=== PATIENT | male | born 1955 | race Caucasian/White ===

== ENCOUNTER 2017-10-14 05:27 | Observation (INO) | payer BC ==
[2017-10-14] MEDS ORDERED: BABY ASPIRIN 81 MG CHEW PO ONE (05:57)
[2017-10-14] MEDS ORDERED: Nitrostat 0.4 MG (ED) SL ONE ×3 (05:57→06:28)
[2017-10-14] MEDS ORDERED: MORPHINE SULFATE 4 MG INJ IV ONE (05:57)
[2017-10-14] MEDS ORDERED: Zofran 4 MG/2 ML VIAL IV ONE (05:57)
[2017-10-14] MEDS ORDERED: Pepcid 20 MG VIAL IV ONE ×2 (05:57→06:10)
--- NOTE | 2017-10-14 05:58 | ERPHSYRPT ---
- History of Present Illness Time Seen by Provider: 10/14/17 05:48 Historian: patient Exam Limitations: no limitations Physician History: The patient is a 62-year-old male complaining of being awakened from sleep at 2 AM by central chest pain. The pain is described as a "solid" pain. He is a little bit short of breath. The pain is a 7 out of 10. He is not nauseated but he states that he might be soon. He denies sweating. It hurts a little bit to take a breath. He did not take anything for the pain except for Maalox which did not help. About 3 weeks ago he was awakened with severe reflux. His past medical history is significant for hypertension and reflux. He has never had a stress test. His family history is significant for a brother who had a CABG in his 50s. Timing/Duration: today, hour(s) (4) Activities at Onset: sleep Quality: other ("solid") Location: central Chest Pain Radiation: back Severity of Pain-Max: moderate Severity of Pain-Current: moderate Modifying Factors: Improves With: breathing Associated Symptoms: shortness of breath, hurts to breathe Prior Chest Pain/Cardiac Workup: no prior chest pain, no prior cardiac workup Nitro Today/Relief: no nitro taken today Aspirin Treatment Today: 81 mg x 4, provided by ED Allergies/Adverse Reactions: Penicillins Allergy (Mild, Verified 10/14/17 05:57) Rash Home Medications: Multivitamin [Multivitamins] 1 each PO HS 07/19/13 [History] Nebivolol HCl [Bystolic] 10 mg PO 07/19/13 [History] Etlan-3 Fatty Acids/Fish Oil [Fish Oil 1,000 mg Capsule] 1,000 mg PO 07/30 [History] Famotidine 20 mg [Pepcid 20 MG] 20 mg PO 10/14/17 [History] Loratadine 10 mg [Claritin 10 mg] 10 mg PO 10/14/17 [History] Hx Influenza Vaccination/Date Given: Yes Hx Pneumococcal Vaccination/Date Given: No - Review of Systems Constitutional: No Fever, No Chills Eyes: No Symptoms Ears, Nose, & Throat: No Symptoms Respiratory: No Cough, No Dyspnea Cardiac: Chest Pain Abdominal/Gastrointestinal: No Abdominal Pain, No Nausea, No Vomiting, No Diarrhea Genitourinary Symptoms: No Dysuria Musculoskeletal: No Back Pain, No Neck Pain Skin: No Rash Neurological: No Dizziness, No Focal Weakness, No Sensory Changes Psychological: No Symptoms Endocrine: No Symptoms Hematologic/Lymphatic: No Symptoms Immunological/Allergic: No Symptoms All Other Systems: Reviewed and Negative - Past Medical History Pertinent Past Medical History: Yes Neurological History: No Pertinent History ENT History: No Pertinent History Cardiac History: High Cholesterol, Hypertension Respiratory History: No Pertinent History Endocrine Medical History: No Pertinent History Musculoskeletal History: No Pertinent History GI Medical History: No Pertinent History History: No Pertinent History Psycho-Social History: No Pertinent History Male Reproductive Disorders: No Pertinent History - Past Surgical History Past Surgical History: Yes Neuro Surgical History: No Pertinent History Cardiac: No Pertinent History Respiratory: No Pertinent History Gastrointestinal: No Pertinent History Genitourinary: No Pertinent History Musculoskeletal: Orthopedic Surgery Other Surgical History: left middle finger amputation - Social History Smoking Status: Never smoker Exposure to second hand smoke: No Drug Use: none - Nursing Vital Signs Nursing Vital Signs: Initial Vital Signs Temperature 97.5 F 10/14/17 05:39 Pulse Rate 62 10/14/17 05:39 Respiratory Rate 22 10/14/17 05:39 Blood Pressure 170/89 10/14/17 05:39 O2 Sat by Pulse Oximetry 99 10/14/17 05:39 Pain Scale Pain Intensity 3 - Physical Exam General Appearance: moderate distress Eye Exam: PERRL/EOMI, eyes nml inspection Ears, Nose, Throat Exam: normal ENT inspection, moist mucous membranes Neck Exam: normal inspection, non-tender, supple, full range of motion Respiratory Exam: normal breath sounds, chest tenderness (slight tenderness), lungs clear, No respiratory distress Cardiovascular Exam: regular rate/rhythm, normal heart sounds Gastrointestinal/Abdomen Exam: soft, No tenderness, No mass Rectal Exam: not done Back Exam: normal inspection, No CVA tenderness, No vertebral tenderness Extremity Exam: normal inspection, normal range of motion Neurologic Exam: alert, oriented x 3, cooperative, normal mood/affect, sensation nml, No motor deficits Skin Exam: normal color, warm, dry SpO2 Interpretation: normal - Course EKG Interpreted by Me: RATE, Sinus Rhythm, NORMAL AXIS, NORMAL INTERVALS, NORMAL QRS, NORMAL ST-T Ordered Tests: Active Orders 24 hr Category Date Time Status Vp [employer] Engineering STAT Care 10/14/17 05:58 Active EKG-ER Only STAT Care 10/14/17 05:57 Active IV Insertion STAT Care 10/14/17 05:57 Active Oxygen-ED Only NASAL CANNULA 2 lpm Care 10/14/17 05:57 Active Pulse Oximetry (ED) STAT Care 10/14/17 05:57 Active CHEST 1 VIEW (PORTABLE) Stat Exams 10/14/17 06:13 Taken CBC W DIFF Stat Lab 10/14/17 05:30 Completed CMP Stat Lab 10/14/17 05:30 Completed D-DIMER QUANTITATION Stat Lab 10/14/17 05:30 Completed NT PRO BNP Stat Lab 10/14/17 05:30 Completed TROPONIN Q3H Lab 10/14/17 05:55 Completed TROPONIN Q3H Lab 10/14/17 09:00 Ordered TROPONIN Q3H Lab 10/14/17 12:00 Ordered TROPONIN Q3H Lab 10/14/17 15:00 Ordered TROPONIN Q3H Lab 10/14/17 18:00 Ordered Medication Summary Discontinued Medications Generic Name Dose Route Start Last Admin Trade Name Freq PRN Reason Stop Dose Admin Al Hydrox/Mg Hydrox/Simethicone Confirm 10/14/17 06:03 Maalox Es 30 Ml Unit Dose Administered 10/14/17 06:04 Dose 30 ml .ROUTE .STK-MED ONE Aspirin 324 mg 10/14/17 05:57 10/14/17 06:29 Baby Aspirin 81 Mg Chew PO 10/14/17 05:58 324 mg STAT ONE Administration Aspirin Confirm 10/14/17 06:10 Baby Aspirin 81 Mg Chew Administered 10/14/17 06:11 Dose 324 mg .ROUTE .STK-MED ONE Famotidine 20 mg 10/14/17 05:57 10/14/17 06:18 Pepcid 20 Mg Vial IV 10/14/17 05:58 20 mg STAT ONE Administration Famotidine Confirm 10/14/17 06:10 Pepcid 20 Mg Vial Administered 10/14/17 06:11 Dose 20 mg IV .STK-MED ONE Lidocaine HCl Confirm 10/14/17 06:03 Xylocaine Hcl Viscous * Administered 10/14/17 06:04 Dose 15 ml .ROUTE .STK-MED ONE Magnesium Hydroxide 45 ml 10/14/17 06:00 10/14/17 06:05 Gi Cocktail 45 Ml (Maalox/Lidocaine) PO 10/14/17 06:01 45 ml STAT ONE Administration Morphine Sulfate 4 mg 10/14/17 05:57 Morphine Sulfate 4 Mg Inj IV 10/14/17 05:58 STAT ONE Nitroglycerin 0.4 mg 10/14/17 05:57 10/14/17 06:20 Nitrostat 0.4 Mg (Ed) SL 10/14/17 05:58 0.4 mg STAT ONE Administration Nitroglycerin Confirm 10/14/17 06:10 Nitrostat 0.4 Mg (Ed) Administered 10/14/17 06:11 Dose 0.4 mg SL .STK-MED ONE Nitroglycerin 0.4 mg 10/14/17 06:28 Nitrostat 0.4 Mg (Ed) SL 10/14/17 06:29 STAT ONE Ondansetron HCl 4 mg 10/14/17 05:57 10/14/17 06:19 Zofran 4 Mg/2 Ml Vial IV 10/14/17 05:58 4 mg STAT ONE Administration Ondansetron HCl Confirm 10/14/17 06:10 Zofran 4 Mg/2 Ml Vial Administered 10/14/17 06:11 Dose 4 mg .ROUTE .STK-MED ONE Lab/Rad Data: Laboratory Result Diagrams 10/14/17 05:30 10/14/17 05:30 Laboratory Results 10/14/17 10/14/17 10/14/17 Range/Units 05:55 05:30 05:30 WBC (4.0-10.5) K/mm3 RBC (4.1-5.6) M/mm3 Hgb (12.5-18.0) gm/dl Hct (42-50) % MCV (78-100) fl MCH (26-32) pg MCHC (32-36) g/dl RDW (11.5-14.0) % Plt Count (150-450) K/mm3 MPV (6-9.5) fl Gran % (36.0-66.0) % Eos # (Auto) (0-0.5) Absolute Lymphs (auto) (1.0-4.6) Absolute Monos (auto) (0.0-1.3) Lymphocytes % (24.0-44.0) % Monocytes % (0.0-12.0) % Eosinophils % (0.00-5.0) % Basophils % (0.0-0.4) % Absolute Granulocytes (1.4-6.9) Basophils # (0-0.4) D-Dimer < 215 L (215-500) ng/mL Sodium 139 (137-145) mmol/L Potassium 4.2 (3.5-5.1) mmol/L Chloride 103 (98-107) mmol/L Carbon Dioxide 24 (22-30) mmol/L Anion Gap 15.9 H (5-15) MEQ/L BUN 15 (9-20) mg/dL Creatinine 0.79 (0.66-1.25) mg/dL Estimated GFR > 60.0 ML/MIN Glucose 173 H (74-106) mg/dL Calcium 9.8 (8.4-10.2) mg/dL Total Bilirubin 0.30 (0.2-1.3) mg/dL AST 24 (17-59) U/L ALT 21 (0-50) U/L Alkaline Phosphatase 95 (38-126) U/L Troponin I < 0.012 (0.000-0.034) ng/mL NT-Pro-B Natriuret Pep 43.9 (0-900) pg/mL Serum Total Protein 8.4 H (6.3-8.2) g/dL Albumin 4.5 (3.5-5.0) g/dL 10/14/17 Range/Units 05:30 WBC 11.8 H (4.0-10.5) K/mm3 RBC 4.96 (4.1-5.6) M/mm3 Hgb 15.4 (12.5-18.0) gm/dl Hct 44.8 (42-50) % MCV 90.3 (78-100) fl MCH 31.0 (26-32) pg MCHC 34.4 (32-36) g/dl RDW 13.2 (11.5-14.0) % Plt Count 247 (150-450) K/mm3 MPV 10.1 H (6-9.5) fl Gran % 61.8 (36.0-66.0) % Eos # (Auto) 0.09 (0-0.5) Absolute Lymphs (auto) 3.40 (1.0-4.6) Absolute Monos (auto) 1.01 (0.0-1.3) Lymphocytes % 28.7 (24.0-44.0) % Monocytes % 8.5 (0.0-12.0) % Eosinophils % 0.8 (0.00-5.0) % Basophils % 0.2 (0.0-0.4) % Absolute Granulocytes 7.31 H (1.4-6.9) Basophils # 0.02 (0-0.4) D-Dimer (215-500) ng/mL Sodium (137-145) mmol/L Potassium (3.5-5.1) mmol/L Chloride (98-107) mmol/L Carbon Dioxide (22-30) mmol/L Anion Gap (5-15) MEQ/L BUN (9-20) mg/dL Creatinine (0.66-1.25) mg/dL Estimated GFR ML/MIN Glucose (74-106) mg/dL Calcium (8.4-10.2) mg/dL Total Bilirubin (0.2-1.3) mg/dL AST (17-59) U/L ALT (0-50) U/L Alkaline Phosphatase (38-126) U/L Troponin I (0.000-0.034) ng/mL NT-Pro-B Natriuret Pep (0-900) pg/mL Serum Total Protein (6.3-8.2) g/dL Albumin (3.5-5.0) g/dL - Progress Progress: improved Air Movement: good Progress Note: 10/14/17 06:25 Pt was not able to consume the entire GI cocktail. Pt took about 1/4 of it. After NG 0.4 mg SL, pt's CP is now 3 of 10 down from a 7 of 10. 10/14/17 06:42 After only a couple of minutes, pt is [id number]. Will see patient in: hospital (observation) (per Dr Ana Luisa Little.) Counseled pt/family regarding: lab results, diagnosis, rad results - Departure Time of Disposition: 06:43 Departure Disposition: Observation (per Dr Ana Luisa Little.) Clinical Impression: Chest pain Condition: Stable Critical Care Time: No Referrals: ADEN TOLLIVER MD [Primary Care Provider] -
[2017-10-14] MEDS ORDERED: GI COCKTAIL 45 ML (Maalox/Lidocaine) PO ONE (06:00)
[2017-10-14] MEDS ORDERED: XYLOCAINE HCl Viscous ONE (06:03)
[2017-10-14] MEDS ORDERED: MAALOX ES 30 ML UNIT DOSE ONE (06:03)
[2017-10-14 06:08] LABS: BASOPHIL % 0.2 % (0.0-0.4); Basophil (Absolute #) 0.02 (0-0.4); Eosinophil % 0.8 % (0.00-5.0); Eosinophil (Absolute #) 0.09 (0-0.5); Granulocyte Absolute (ANC) 7.31 (1.4-6.9); Granulocytes % 61.8 % (36.0-66.0); Hematocrit 44.8 % (42-50); Hemoglobin 15.4 gm/dl (12.5-18.0); Lymphocytes % 28.7 % (24.0-44.0); Mean Cell Volume 90.3 fl (78-100); Mean Corpuscular Hgb Concent. 34.4 g/dl (32-36); Mean Platelet Volume 10.1 fl (6-9.5); Monocyte (Absolute #) 1.01 (0.0-1.3); Monocytes % 8.5 % (0.0-12.0); Platelet Count 247 K/mm3 (150-450); Red Blood Count 4.96 M/mm3 (4.1-5.6); Red Cell Distribution Width 13.2 % (11.5-14.0); White Blood Count 11.8 K/mm3 (4.0-10.5)
[2017-10-14] MEDS ORDERED: Zofran 4 MG/2 ML VIAL ONE (06:10)
[2017-10-14] MEDS ORDERED: BABY ASPIRIN 81 MG CHEW ONE (06:10)
[2017-10-14 06:14] LABS: ALBUMIN 4.5 g/dL (3.5-5.0); ALKALINE PHOSPHATASE 95 U/L (38-126); ANION GAP 15.9 MEQ/L (5-15); BLOOD UREA NITROGEN 15 mg/dL (9-20); CHLORIDE 103 mmol/L (98-107); Calcium 9.8 mg/dL (8.4-10.2); Carbon Dioxide 24 mmol/L (22-30); Creatinine 1 0.79 mg/dL (0.66-1.25); Glucose 173 mg/dL (74-106); Potassium 4.2 mmol/L (3.5-5.1); SGOT/AST 24 U/L (17-59); SGPT/ALT 21 U/L (0-50); SODIUM 139 mmol/L (137-145); Total Protein 8.4 g/dL (6.3-8.2)
[2017-10-14 06:23] LABS: NT PRO BNP 43.9 pg/mL (0-900)
[2017-10-14] MEDS ORDERED: MAALOX ES 30 ML UNIT DOSE PO PRN (08:08)
[2017-10-14] MEDS ORDERED: TYLENOL 325 MG PO PRN (08:08)
[2017-10-14] MEDS ORDERED: Senokot-S Tablet PO PRN (08:08)
[2017-10-14] MEDS ORDERED: MILK OF MAGNESIA 30 ML PO PRN (08:08)
[2017-10-14] MEDS ORDERED: Zofran 4 MG/2 ML VIAL IV PRN (08:08)
[2017-10-14] MEDS ORDERED: Nitrostat 0.4 MG Tablet SL PRN (08:08)
[2017-10-14] MEDS ORDERED: MORPHINE SULFATE 4 MG INJ IV PRN (08:15)
--- NOTE | 2017-10-14 08:45 | XRAY ---
Indication: Chest pain. Comparison: None Portable apical lordotic chest demonstrates normal heart and lungs. Bony thorax intact with mild degenerative changes.
--- NOTE | 2017-10-14 12:51 | PCM.SSS ---
History of Present Illness - Chief Complaint Chief Complaint: chest pain at @ AM History of Present Illness: The patient is a 62-year-old male complaining of being awakened from sleep at 2 AM by central chest pain. The pain is described as a "solid" pain. He is a little bit short of breath. The pain is a 7 out of 10. He is not nauseated but he states that he might be soon. He denies sweating. It hurts a little bit to take a breath. He did not take anything for the pain except for Maalox which did not help. About 3 weeks ago he was awakened with severe reflux. His past medical history is significant for hypertension and reflux. He has never had a stress test. His family history is significant for a brother who had a CABG in his 50s. - Review of Systems Constitutional: No Fever, No Chills Eyes: No Symptoms Ears, Nose, & Throat: No Symptoms Respiratory: No Cough, No Short Of Breath Cardiac: Chest Pain, No Edema, No Syncope Abdominal/Gastrointestinal: No Abdominal Pain, No Nausea, No Vomiting, No Diarrhea Genitourinary Symptoms: No Dysuria Musculoskeletal: No Back Pain, No Neck Pain Skin: No Rash Neurological: No Dizziness, No Focal Weakness, No Sensory Changes Psychological: No Symptoms Endocrine: No Symptoms Hematologic/Lymphatic: No Symptoms Immunological/Allergic: No Symptoms Medications & Allergies Home Medications: Home Medication List Nebivolol HCl [Bystolic] 10 mg PO HS 07/19/13 [History Confirmed 10/14/17] Manor-3 Fatty Acids/Fish Oil [Fish Oil 1,000 mg Capsule] 1,000 mg PO HS 07/30 [History Confirmed 10/14/17] Famotidine 20 mg [Pepcid 20 MG] 20 mg PO HS 10/14/17 [History Confirmed ] Loratadine 10 mg [Claritin 10 mg] 10 mg PO HS 10/14/17 [History Confirmed 10/14/17] Allergies/Adverse Reactions: Allergies Allergy/AdvReac Type Severity Reaction Status Date / Time Penicillins Allergy Mild Rash Verified 10/14/17 08:46 - Past Medical History Past Medical History: Yes Neurological History: No Pertinent History ENT History: No Pertinent History Cardiac History: High Cholesterol, Hypertension Respiratory History: No Pertinent History Endocrine Medical History: No Pertinent History Musculoskelatal History: No Pertinent History GI Medical History: No Pertinent History History: No Pertinent History Pyscho-Social History: No Pertinent History Male Reproductive Disorders: No Pertinent History - Past Surgical History Past Surgical History: Yes Neuro Surgical History: No Pertinent History Cardiac History: No Pertinent History Respiratory Surgery: No Pertinent History GI Surgical History: No Pertinent History, Other Genitourinary Surgical Hx: No Pertinent History Musculskeletal Surgical Hx: Orthopedic Surgery Male Surgical History: No Pertinent History Other Surgical History: polyp removal, left middle finger amputation - Social History Smoking Status: Never smoker Exposure to second hand smoke: No Alcohol: None Drug Use: none - Physical Exam Vital Signs: Vital Signs - 24 hr Temp Pulse Pulse Resp BP Pulse Ox 10/14/17 08:00 98.4 F 63 18 159/75 98 10/14/17 07:06 65 20 174/93 97 10/14/17 06:37 62 22 169/84 100 10/14/17 06:32 98 H 30 H 124/78 99 10/14/17 06:27 65 19 143/82 97 10/14/17 06:21 57 L 19 182/96 97 10/14/17 05:57 99 10/14/17 05:39 97.5 F 62 62 22 170/89 99 Oxygen-Last 24 hours O2 Percentage 2 Liters = 28% O2 Percentage 2 Liters = 28% O2 Percentage 2 Liters = 28% O2 Percentage 2 Liters = 28% O2 Percentage 2 Liters = 28% General Appearance: no apparent distress, alert Neurologic Exam: alert, oriented x 3, cooperative, normal mood/affect, nml cerebellar function, nml station & gait, sensation nml, No motor deficits Eye Exam: PERRL/EOMI, eyes nml inspection Ears, Nose, Throat Exam: normal ENT inspection, TMs normal, pharynx normal, moist mucous membranes Neck Exam: normal inspection, non-tender, supple, full range of motion Respiratory Exam: normal breath sounds, lungs clear, No respiratory distress Cardiovascular Exam: regular rate/rhythm, normal heart sounds, normal peripheral pulses Gastrointestinal/Abdomen Exam: soft, normal bowel sounds, No tenderness, No mass Back Exam: normal inspection, normal range of motion, No CVA tenderness, No vertebral tenderness Extremity Exam: normal inspection, normal range of motion, pelvis stable Skin Exam: normal color, warm, dry, No rash Lymphatic Exam: No adenopathy Results - Labs Lab/Micro Results: Lab Results-Last 24 Hours 10/14/17 10/14/17 Range/Units 09:20 12:05 Troponin I < 0.012 < 0.012 (0.000-0.034) ng/mL - Other Procedures and Tests Respiratory Therapy 10/14/17 11:42 EKG ONCE 10/15/17 05:00 EKG ONCE 10/16/17 05:00 EKG ONCE 10/17/17 05:00 EKG ONCE Assessment/Plan (1) Chest pain Current Visit: Yes Status: Acute Onset Date: ~10/14/17 Qualifiers: Chest pain type: unspecified Qualified Code(s): R07.9 - Chest pain, unspecified Code(s): R07.9 - CHEST PAIN, UNSPECIFIED Hospital Summary - Hospital Course Hospital Course: Chief Complaint Diagnosis chest pain Allergies Allergy/AdvReac Type Severity Reaction Status Date / Time Penicillins Allergy Mild Rash Verified 10/14/17 08:46 Vital Signs (Last 24 hours) Temp Pulse Pulse Resp BP Pulse Ox 10/14/17 08:00 98.4 F 63 18 159/75 98 10/14/17 07:06 65 20 174/93 97 10/14/17 06:37 62 22 169/84 100 10/14/17 06:32 98 H 30 H 124/78 99 10/14/17 06:27 65 19 143/82 97 10/14/17 06:21 57 L 19 182/96 97 10/14/17 05:57 99 10/14/17 05:39 97.5 F 62 62 22 170/89 99 Home Medications Medication Instructions Recorded Confirmed Last Taken Type Famotidine 20 mg [Pepcid 20 20 mg PO 10/14/17 10/14/17 10/13/17 History MG] Loratadine 10 mg [Claritin 10 10 mg PO 10/14/17 10/14/17 10/13/17 History mg] Current Medications Generic Name Dose Route Start Last Admin Trade Name Freq PRN Reason Stop Dose Admin Acetaminophen 650 mg 10/14/17 08:08 Tylenol 325 Mg PO 11/13/17 08:07 Q4H PRN PRN PAIN AND/OR FEVER Al Hydrox/Mg Hydrox/Simethicone 30 ml 10/14/17 08:08 10/14/17 11:17 Maalox Es 30 Ml Unit Dose PO 11/13/17 08:07 30 ml Q4H PRN PRN Administration INDIGESTION Aspirin 325 mg 10/15/17 10:00 Ecotrin 325 Mg PO 11/14/17 09:59 DAILY FELIX Magnesium Hydroxide 30 - 60 ml 10/14/17 08:08 Milk Of Magnesia 30 Ml PO 11/13/17 08:07 QDP PRN CONSTIPATION Morphine Sulfate 2 mg 10/14/17 08:15 Morphine Sulfate 4 Mg Inj IV 10/19/17 08:14 .Q15 MIN PRN CHEST PAIN Nitroglycerin 0.4 mg 10/14/17 08:08 Nitrostat 0.4 Mg Tablet SL 11/13/17 08:07 .Q5MIN PRN CHEST PAIN Ondansetron HCl 4 mg 10/14/17 08:08 10/14/17 11:17 Zofran 4 Mg/2 Ml Vial IV 11/13/17 08:07 4 mg Q4H PRN PRN Administration NAUSEA/VOMITING Senna/Docusate Sodium 2 udtab 10/14/17 08:08 Senokot-S Tablet PO 11/13/17 08:07 BID PRN PRN CONSTIPATION Discontinued Medications Generic Name Dose Route Start Last Admin Trade Name Freq PRN Reason Stop Dose Admin Al Hydrox/Mg Hydrox/Simethicone Confirm 10/14/17 06:03 Maalox Es 30 Ml Unit Dose Administered 10/14/17 06:04 Dose 30 ml .ROUTE .STK-MED ONE Aspirin 324 mg 10/14/17 05:57 10/14/17 06:29 Baby Aspirin 81 Mg Chew PO 10/14/17 05:58 324 mg STAT ONE Administration Aspirin Confirm 10/14/17 06:10 Baby Aspirin 81 Mg Chew Administered 10/14/17 06:11 Dose 324 mg .ROUTE .STK-MED ONE Famotidine 20 mg 10/14/17 05:57 10/14/17 06:18 Pepcid 20 Mg Vial IV 10/14/17 05:58 20 mg STAT ONE Administration Famotidine Confirm 10/14/17 06:10 Pepcid 20 Mg Vial Administered 10/14/17 06:11 Dose 20 mg IV .STK-MED ONE Lidocaine HCl Confirm 10/14/17 06:03 Xylocaine Hcl Viscous * Administered 10/14/17 06:04 Dose 15 ml .ROUTE .STK-MED ONE Magnesium Hydroxide 45 ml 10/14/17 06:00 10/14/17 06:05 Gi Cocktail 45 Ml (Maalox/Lidocaine) PO 10/14/17 06:01 45 ml STAT ONE Administration Morphine Sulfate 4 mg 10/14/17 05:57 10/14/17 06:42 Morphine Sulfate 4 Mg Inj IV 10/14/17 05:58 Not Given STAT ONE Nitroglycerin 0.4 mg 10/14/17 05:57 10/14/17 06:20 Nitrostat 0.4 Mg (Ed) SL 10/14/17 05:58 0.4 mg STAT ONE Administration Nitroglycerin Confirm 10/14/17 06:10 Nitrostat 0.4 Mg (Ed) Administered 10/14/17 06:11 Dose 0.4 mg SL .STK-MED ONE Nitroglycerin 0.4 mg 10/14/17 06:28 10/14/17 06:42 Nitrostat 0.4 Mg (Ed) SL 10/14/17 06:29 Not Given STAT ONE Ondansetron HCl 4 mg 10/14/17 05:57 10/14/17 06:19 Zofran 4 Mg/2 Ml Vial IV 10/14/17 05:58 4 mg STAT ONE Administration Ondansetron HCl Confirm 10/14/17 06:10 Zofran 4 Mg/2 Ml Vial Administered 10/14/17 06:11 Dose 4 mg .ROUTE .STK-MED ONE Intake & Output (Last 24 hours) 10/12/17 10/13/17 10/14/17 10/15/17 11:59 11:59 11:59 11:59 Intake Total 240 Balance 240 Weight 87 kg Laboratory Results (Last 24 hours) 10/14/17 10/14/17 10/14/17 12:05 09:20 05:55 WBC RBC Hgb Hct MCV MCH MCHC RDW Plt Count MPV Gran % Eos # (Auto) Absolute Lymphs (auto) Absolute Monos (auto) Lymphocytes % Monocytes % Eosinophils % Basophils % Absolute Granulocytes Basophils # D-Dimer Sodium Potassium Chloride Carbon Dioxide Anion Gap BUN Creatinine Estimated GFR Glucose Calcium Total Bilirubin AST ALT Alkaline Phosphatase Troponin I < 0.012 < 0.012 < 0.012 NT-Pro-B Natriuret Pep Serum Total Protein Albumin 10/14/17 10/14/17 10/14/17 05:30 05:30 05:30 WBC 11.8 H RBC 4.96 Hgb 15.4 Hct 44.8 MCV 90.3 MCH 31.0 MCHC 34.4 RDW 13.2 Plt Count 247 MPV 10.1 H Gran % 61.8 Eos # (Auto) 0.09 Absolute Lymphs (auto) 3.40 Absolute Monos (auto) 1.01 Lymphocytes % 28.7 Monocytes % 8.5 Eosinophils % 0.8 Basophils % 0.2 Absolute Granulocytes 7.31 H Basophils # 0.02 D-Dimer < 215 L Sodium 139 Potassium 4.2 Chloride 103 Carbon Dioxide 24 Anion Gap 15.9 H BUN 15 Creatinine 0.79 Estimated GFR > 60.0 Glucose 173 H Calcium 9.8 Total Bilirubin 0.30 AST 24 ALT 21 Alkaline Phosphatase 95 Troponin I NT-Pro-B Natriuret Pep 43.9 Serum Total Protein 8.4 H Albumin 4.5 Orders (Last 24 hours) Category Date Time Status Bedrest with BRP/BSC ROUTINE Activity 10/14/17 08:08 Active Integrated Circuits Inspector STAT Care 10/14/17 05:58 Completed Code Status Order ROUTINE Care 10/14/17 08:08 Active EKG-ER Only STAT Care 10/14/17 05:57 Completed IV Care Q6H Care 10/14/17 08:08 Active IV Insertion STAT Care 10/14/17 05:57 Completed Implement Chest Pain Pathway ROUTINE Care 10/14/17 08:08 Active Oxygen-ED Only NASAL CANNULA 2 lpm Care 10/14/17 05:[address] in Observation ROUTINE Care 10/14/17 08:08 Active Pulse Oximetry (ED) STAT Care 10/14/17 05:57 Completed Ajit Steve ROUTINE Care 10/14/17 08:08 Active Telemetry ROUTINE Care 10/14/17 08:08 Active Weight,Daily 0600 Care 10/14/17 08:08 Active Cardiac Diet Diet 10/14/17 Breakfast Active CHEST 1 VIEW (PORTABLE) Stat Exams 10/14/17 06:13 Completed CBC W DIFF Stat Lab 10/14/17 05:30 Completed CMP Stat Lab 10/14/17 05:30 Completed D-DIMER QUANTITATION Stat Lab 10/14/17 05:30 Completed LIPID PROFILE AM.LAB Lab 10/15/17 04:00 Ordered NT PRO BNP Stat Lab 10/14/17 05:30 Completed TROPONIN Q3H Lab 10/14/17 05:55 Completed TROPONIN Q3H Lab 10/14/17 09:20 Completed TROPONIN Q3H Lab 10/14/17 12:05 Completed TROPONIN Q3H Lab 10/14/17 15:00 Ordered TROPONIN Q3H Lab 10/14/17 18:00 Ordered Acetaminophen 325 mg [Tylenol 325 mg] Med 10/14/17 08:08 Active 650 mg PO Q4H PRN PRN Aspirin 81 gm Chew [Baby Aspirin 81 mg Chew] Med 10/14/17 06:10 Discontinued 324 mg .ROUTE .STK-MED ONE Aspirin 81 gm Chew [Baby Aspirin 81 mg Chew] Med 10/14/17 05:57 Discontinued 324 mg PO STAT ONE Aspirin EC 325 mg [Ecotrin 325 MG] Med 10/15/17 10:00 Active 325 mg PO DAILY Famotidine 20 mg Vial [Pepcid 20 MG VIAL] Med 10/14/17 06:10 Discontinued 20 mg IV .STK-MED ONE Famotidine 20 mg Vial [Pepcid 20 MG VIAL] Med 10/14/17 05:57 Discontinued 20 mg IV STAT ONE Lidocaine HCl Viscous [XYLOCAINE HCl Viscous *] Med 10/14/17 06:03 Discontinued 15 ml .ROUTE .STK-MED ONE Mag Hydrox/Al Hydrox/Simeth [Maalox Es 30 ml Unit Med 10/14/17 06:03 Discontinued Dose] 30 ml .ROUTE .STK-MED ONE Mag Hydrox/Al Hydrox/Simeth [Maalox Es 30 ml Unit Med 10/14/17 08:08 Active Dose] 30 ml PO Q4H PRN PRN Mag Hydrx/Alum Hyd/Simeth/Lido [GI COCKTAIL 45 ML ( Med 10/14/17 06:00 Discontinued Maalox/Lidocaine)] 45 ml PO STAT ONE Magnesium Hydroxide 30 ml [Milk of Magnesia 30 ml Med 10/14/17 08:08 Active ] 30 - 60 ml PO QDP PRN Morphine Sulfate 4 mg Inj Med 10/14/17 08:15 Active 2 mg IV .Q15 MIN PRN Morphine Sulfate 4 mg Inj Med 10/14/17 05:57 Discontinued 4 mg IV STAT ONE Nitroglycerin 0.4 mg (Ed) [Nitrostat 0.4 MG (ED)] Med 10/14/17 06:10 Discontinued 0.4 mg SL .STK-MED ONE Nitroglycerin 0.4 mg (Ed) [Nitrostat 0.4 MG (ED)] Med 10/14/17 05:57 Discontinued 0.4 mg SL STAT ONE Nitroglycerin 0.4 mg (Ed) [Nitrostat 0.4 MG (ED)] Med 10/14/17 06:28 Discontinued 0.4 mg SL STAT ONE Nitroglycerin 0.4 mg Tablet [Nitrostat 0.4 MG Tablet Med 10/14/17 08:08 Active ] 0.4 mg SL .Q5MIN PRN Ondansetron HCl 4 mg/2 ml [Zofran 4 MG/2 ML VIAL] Med 10/14/17 06:10 Discontinued 4 mg .ROUTE .STK-MED ONE Ondansetron HCl 4 mg/2 ml [Zofran 4 MG/2 ML VIAL] Med 10/14/17 08:08 Active 4 mg IV Q4H PRN PRN Ondansetron HCl 4 mg/2 ml [Zofran 4 MG/2 ML VIAL] Med 10/14/17 05:57 Discontinued 4 mg IV STAT ONE Senna/Docusate Sodium Tab [Senokot-S Tablet] Med 10/14/17 08:08 Active 2 udtab PO BID PRN PRN EKG ONCE RT 10/14/17 11:42 Active EKG ONCE RT 10/15/17 05:00 Active EKG ONCE RT 10/16/17 05:00 Active EKG ONCE RT 10/17/17 05:00 Active Oxygen NASAL CANNULA 2 lpm RT 10/14/17 08:08 Active Transfer Order Routine Transfer 10/14/17 Completed - Vitals & Intake/Output Vital Signs: Vital Signs Temperature 98.4 F 10/14/17 08:00 Pulse Rate 63 10/14/17 08:00 Respiratory Rate 18 10/14/17 08:00 Blood Pressure 159/75 10/14/17 08:00 O2 Sat by Pulse Oximetry 98 10/14/17 08:00 Oxygen-Last Documented O2 Percentage 2 Liters = 28% Intake & Output: Intake & Output 10/12/17 10/13/17 10/14/17 10/15/17 11:59 11:59 11:59 11:59 Intake Total 240 Balance 240 Weight 87 kg - Lab Result Diagrams: 10/14/17 05:30 10/14/17 05:30 Lab Results-Last 24 Hrs: Lab Results-Last 24 Hours 10/14/17 10/14/17 Range/Units 09:20 12:05 Troponin I < 0.012 < 0.012 (0.000-0.034) ng/mL - Procedures and Test Procedures and Tests throughout Hospitalization: Therapy Orders & Screens 10/14/17 11:42 EKG ONCE Comment: Diagnosis: chest pain 10/15/17 05:00 EKG ONCE Comment: Diagnosis: chest pain 10/16/17 05:00 EKG ONCE Comment: Diagnosis: chest pain 10/17/17 05:00 EKG ONCE Comment: Diagnosis: chest pain - Discharge Discharge Date: 10/14/17 Disposition: Home, Self-Care Condition: Stable Prescriptions: Continue Nebivolol HCl [Bystolic] 10 mg PO HS Manor-3 Fatty Acids/Fish Oil [Fish Oil 1,000 mg Capsule] 1,000 mg PO HS Loratadine 10 mg [Claritin 10 mg] 10 mg PO HS Famotidine 20 mg [Pepcid 20 MG] 20 mg PO HS Follow up with: ADEN TOLLIVER MD [Primary Care Provider] - 1 Week
[2017-10-14 13:14] VITALS: BP 163/82; O2SAT 95
[2017-10-14 14:08] VITALS: PULSE 98
[2017-10-14] MEDS ORDERED: CLARITIN 10 MG PO SCH (22:00)
[2017-10-14] MEDS ORDERED: FISH OIL 1,000 MG CAPSULE PO SCH (22:00)
[2017-10-14] MEDS ORDERED: Pepcid 20 MG PO SCH (22:00)
[2017-10-14] MEDS ORDERED: NON-FORMULARY ITEM (Nebivolol Hcl [Bystolic] 10 MG) PO SCH (22:00)
[2017-10-14] MEDS ORDERED: Bystolic 5 MG PO SCH (22:00)
[2017-10-15] MEDS ORDERED: Ecotrin 325 MG PO SCH (10:00)
== END 2017-10-14 14:55 | disposition home or self-care (01) ==
LOC: ED 05:27 → MED SURG 07:43
PROVIDERS: ADMIT Internal Medicine; ATTEND General Practice
DX: R07.9 Chest pain, unspecified (principal); I10 Essential (primary) hypertension; E78.00 Pure hypercholesterolemia, unspecified
CPT/HCPCS: 36000; 36415; 71045; 80053; 83880; 84484; 85025; 85379; 93005; 93041; 93268; 96374; 96375; 99285; J2405; A9270-GY; G0378

== ENCOUNTER 2022-07-25 15:00 | Inpatient (IN) | payer MEDICARE ==
--- NOTE | 2022-07-25 15:21 | ERPHSYRPT ---
- History of Present Illness Time Seen by Provider: 07/25/22 15:20 Historian: patient Exam Limitations: no limitations Physician History: This is a 67-year-old white male patient originally a patient of Dr. Tolliver who noticed 4 days ago terrible right-sided abdominal pain with multiple episodes of vomiting. The nausea and vomiting has subsided somewhat but the right side in the upper quadrant has persisted. Patient's , who is a nurse, provided additional information. She states that he has had 3 episodes like this in the last 6 weeks. Typically, it occurred after eating. He has not noticed any jaundice or dark urine. He has not noticed any acholic stools. He has had a decreased appetite. Patient denies chest pain. He denies shortness of breath. Patient does have a history of hyperlipidemia and hypertension. Timing/Duration: yesterday Activities at Onset: other Quality: sharpness, stabbing Abdominal Pain Onset Location: RUQ Severity of Pain-Max: moderate Severity of Pain-Current: moderate Modifying Factors: Improves With: vomiting Associated Symptoms: diarrhea, loss of appetite, nausea, vomiting, No chest pain, No shortness of breath Previous symptoms: no recent treatment Allergies/Adverse Reactions: Penicillins Allergy (Mild, Verified 07/25/22 15:24) Rash Home Medications: Nebivolol HCl [Bystolic] 10 mg PO HS 07/19/13 [History] [place]-3 Fatty Acids/Fish Oil [Fish Oil 1,000 mg Capsule] 1,000 mg PO BID 07/19/13 [History] Loratadine 10 mg [Claritin 10 mg] 10 mg PO HS 10/14/17 [History] Aspirin EC 81 mg [Ecotrin 81 mg] 81 mg PO DAILY 07/25/22 [History] Docusate Sodium [Colace] 100 mg PO HS 07/25/22 [History] Lisinopril 10 mg [Zestril 10 MG] 10 mg PO DAILY 07/25/22 [History] Lovastatin 10 mg PO HS 07/25/22 [History] Omeprazole 20 mg PO HS 07/25/22 [History] Ubidecarenone [Co Q-10] 100 mg PO DAILY 07/25/22 [History] Hx Tetanus, Diphtheria Vaccination/Date Given: Yes Hx Influenza Vaccination/Date Given: Yes Hx Pneumococcal Vaccination/Date Given: No Travel Risk - International Travel Have you traveled outside of the country in past 3 weeks: No - Coronavirus Screening Are you exhibiting any of the following symptoms?: No Close contact with a COVID-19 positive Pt in past 14-21 Days: No - Review of Systems Constitutional: No Symptoms Eyes: No Symptoms Ears, Nose, & Throat: No Symptoms Respiratory: No Symptoms Cardiac: Orthopnea Abdominal/Gastrointestinal: Abdominal Pain (Upper quadrant), Nausea, Vomiting, Diarrhea Genitourinary Symptoms: No Symptoms Musculoskeletal: No Symptoms Skin: No Symptoms Neurological: No Symptoms Psychological: No Symptoms Endocrine: No Symptoms Hematologic/Lymphatic: No Symptoms Immunological/Allergic: No Symptoms All Other Systems: Reviewed and Negative - Past Medical History Pertinent Past Medical History: Yes Neurological History: No Pertinent History ENT History: No Pertinent History Cardiac History: High Cholesterol, Hypertension Respiratory History: No Pertinent History Endocrine Medical History: No Pertinent History Musculoskeletal History: No Pertinent History GI Medical History: No Pertinent History History: No Pertinent History Psycho-Social History: No Pertinent History Male Reproductive Disorders: No Pertinent History - Past Surgical History Past Surgical History: Yes Neuro Surgical History: No Pertinent History Cardiac: No Pertinent History Respiratory: No Pertinent History Gastrointestinal: No Pertinent History, Other Genitourinary: No Pertinent History Musculoskeletal: Orthopedic Surgery Male Surgical History: No Pertinent History Other Surgical History: polyp removal, left middle finger amputation - Social History Smoking Status: Never smoker Exposure to second hand smoke: No Drug Use: none Patient Lives Alone: No - Nursing Vital Signs Nursing Vital Signs: Initial Vital Signs Temperature 98.5 F 07/25/22 15:10 Pulse Rate 91 H 07/25/22 15:10 Respiratory Rate 18 07/25/22 15:10 Blood Pressure 93/58 07/25/22 15:10 O2 Sat by Pulse Oximetry 98 07/25/22 15:10 Pain Scale Pain Intensity 5 - Physical Exam General Appearance: no apparent distress, alert, anxiety Eye Exam: PERRL/EOMI, eyes nml inspection Ears, Nose, Throat Exam: normal ENT inspection, moist mucous membranes Neck Exam: normal inspection, non-tender, supple, full range of motion Respiratory Exam: normal breath sounds, lungs clear, airway intact, No chest tenderness, No respiratory distress Cardiovascular Exam: regular rate/rhythm, normal heart sounds, normal peripheral pulses Gastrointestinal/Abdomen Exam: soft, normal bowel sounds, tenderness (Right upper quadrant), guarding (Right upper quadrant with palpation), No rebound Rectal Exam: not done Back Exam: normal inspection, normal range of motion, No CVA tenderness, No vertebral tenderness Extremity Exam: normal inspection, normal range of motion, pelvis stable Neurologic Exam: alert, oriented x 3, cooperative, head transfer clerk II-XII nml as tested, normal mood/affect, nml cerebellar function, nml station & gait, sensation nml Skin Exam: normal color, warm, dry Lymphatic Exam: No adenopathy SpO2 Interpretation: normal O2 Delivery: Room Air - Course Nursing assessment & vital signs reviewed: Yes Ordered Tests: Active Orders 24 hr Category Date Time Status IV Insertion STAT Care 07/25/22 15:46 Active ABDOMEN AND PELVIS W/0 CONTRAS [CT] Stat Exams 07/25/22 15:46 Completed AMYLASE Stat Lab 07/25/22 16:04 Completed CBC W DIFF Stat Lab 07/25/22 16:04 Completed CMP Stat Lab 07/25/22 16:04 Completed CULTURE,URINE Stat Lab 07/25/22 15:49 Received LIPASE Stat Lab 07/25/22 16:04 Completed Lactic Acid Stat Lab 07/25/22 16:00 Completed UA W/RFX UR CULTURE Stat Lab 07/25/22 15:49 Completed Transfer Order Routine Transfer 07/25/22 Ordered Medication Summary Generic Name Dose Route Start Last Admin Trade Name Freq PRN Reason Stop Dose Admin Hydromorphone HCl 0.5 mg 07/25/22 17:47 Hydromorphone 1 Mg/1ml Inj 1 Mg/Ml Syringe IV 07/30/22 17:46 Q4H PRN PRN PAIN Levofloxacin/Dextrose 500 mg in 100 mls @ 100 mls/hr 07/25/22 17:05 07/25/22 17:14 Levofloxacin 500mg/100ml D5w IV 07/25/22 18:04 100 mls/hr STAT STA 100 mls/hr Administration Discontinued Medications Generic Name Dose Route Start Last Admin Trade Name Freq PRN Reason Stop Dose Admin Hydromorphone HCl 1 mg 07/25/22 15:46 07/25/22 16:53 Hydromorphone 1 Mg/1ml Inj 1 Mg/Ml Syringe IV 07/25/22 15:47 1 mg STAT ONE Administration Hydromorphone HCl Confirm 07/25/22 15:51 Hydromorphone 1 Mg/1ml Inj 1 Mg/Ml Syringe Administered 07/25/22 15:52 Dose 1 mg .ROUTE .STK-MED ONE Hydromorphone HCl Confirm 07/25/22 16:51 Hydromorphone 1 Mg/1ml Inj 1 Mg/Ml Syringe Administered 07/25/22 16:52 Dose 1 mg .ROUTE .STK-MED ONE Sodium Chloride 1,000 mls @ 999 mls/hr 07/25/22 15:46 07/25/22 17:16 Sodium Chloride 0.9% 1000 Ml IV 07/25/22 16:46 Infused .Q1H1M STA Infusion Sodium Chloride Confirm 07/25/22 15:51 Sodium Chloride 0.9% 1000 Ml Administered 07/25/22 15:52 Dose 1,000 mls @ ud .ROUTE .STK-MED ONE Levofloxacin/Dextrose Confirm 07/25/22 17:13 Levofloxacin 500mg/100ml D5w Administered 07/25/22 17:14 Dose 500 mg in 100 mls @ ud IV .STK-MED ONE Ondansetron HCl 4 mg 07/25/22 15:46 07/25/22 15:53 Ondansetron Hcl 4 Mg/2 Ml Vial IV 07/25/22 15:47 4 mg STAT ONE Administration Ondansetron HCl Confirm 07/25/22 15:51 Ondansetron Hcl 4 Mg/2 Ml Vial Administered 07/25/22 15:52 Dose 4 mg .ROUTE .STK-MED ONE Pantoprazole Sodium 40 mg 07/25/22 15:46 07/25/22 15:53 Pantoprazole 40 Mg Vial IV 07/25/22 15:47 40 mg STAT ONE Administration Pantoprazole Sodium Confirm 07/25/22 15:51 Pantoprazole 40 Mg Vial Administered 07/25/22 15:52 Dose 40 mg IV .STK-MED ONE Lab/Rad Data: Laboratory Result Diagrams 07/25/22 16:04 07/25/22 16:04 Laboratory Results 07/25/22 07/25/22 07/25/22 Range/Units 16:04 16:04 16:00 WBC 16.1 H (4.0-10.5) x10^3/uL RBC 4.61 (4.1-5.6) x10^6/uL Hgb 13.9 (12.5-18.0) g/dL Hct 41.4 L (42-50) % MCV 89.8 (78-100) fL MCH 30.2 (26-32) pg MCHC 33.6 (32-36) g/dL RDW 13.2 (11.5-14.0) % Plt Count 53 L (150-450) x10^3/uL MPV 11.8 H (7.5-11.0) fL Gran % 76.0 H (36.0-66.0) % Immature Gran % (Auto) 0.9 H (0.00-0.4) % Nucleat RBC Rel Count 0.0 (0.00-0.1) % Eos # (Auto) 0.07 (0-0.5) x10^3/uL Immature Gran # (Auto) 0.15 H (0.00-0.03) x10^3u/L Absolute Lymphs (auto) 2.26 (1.0-4.6) x10^3/uL Absolute Monos (auto) 1.37 H (0.0-1.3) x10^3/uL Absolute Nucleated RBC 0.00 (0.00-0.01) x10^3u/L Lymphocytes % 14.0 L (24.0-44.0) % Monocytes % 8.5 (0.0-12.0) % Eosinophils % 0.4 (0.00-5.0) % Basophils % 0.2 (0.0-0.4) % Absolute Granulocytes 12.22 H (1.4-6.9) x10^3/uL Basophils # 0.03 (0-0.4) x10^3/uL Sodium 132 L (137-145) mmol/L Potassium 4.0 (3.5-5.1) mmol/L Chloride 98 (98-107) mmol/L Carbon Dioxide 23 (22-30) mmol/L Anion Gap 15.1 H (5-15) MEQ/L BUN 52 H (9-20) mg/dL Creatinine 2.31 H (0.66-1.25) mg/dL Estimated GFR 30.2 ML/MIN Glucose 118 H (74-106) mg/dL Lactic Acid 1.3 (0.4-2.0) Calcium 8.5 (8.4-10.2) mg/dL Total Bilirubin 0.90 (0.2-1.3) mg/dL AST 36 (17-59) U/L ALT 34 (0-50) U/L Alkaline Phosphatase 134 H (38-126) U/L Serum Total Protein 7.1 (6.3-8.2) g/dL Albumin 3.6 (3.5-5.0) g/dL Amylase 50 (30-110) U/L Lipase 62 (23-300) U/L Urine Color (Yellow) Urine Appearance (Clear) Urine pH (4.6-8.0) Ur Specific [place] (1.005-1.030) Urine Protein (Negative) Urine Glucose (UA) (Negative) mg/dL Urine Ketones (Negative) Urine Blood (Negative) Urine Nitrite (Negative) Urine Bilirubin (Negative) Urine Urobilinogen (0.2) mg/dL Ur Leukocyte Esterase (Negative) U Hyaline Cast (Auto) (0-2) /LPF Urine Microscopic RBC (0-5) /HPF Urine Microscopic WBC (0-5) /HPF Ur Epithelial Cells (None Seen) /HPF Urine Bacteria (None Seen) /HPF Granular Casts (None Seen) /LPF Urine Culture Reflexed (NO) Slides for Path Review YES 07/25/22 Range/Units 15:49 WBC (4.0-10.5) x10^3/uL RBC (4.1-5.6) x10^6/uL Hgb (12.5-18.0) g/dL Hct (42-50) % MCV (78-100) fL MCH (26-32) pg MCHC (32-36) g/dL RDW (11.5-14.0) % Plt Count (150-450) x10^3/uL MPV (7.5-11.0) fL Gran % (36.0-66.0) % Immature Gran % (Auto) (0.00-0.4) % Nucleat RBC Rel Count (0.00-0.1) % Eos # (Auto) (0-0.5) x10^3/uL Immature Gran # (Auto) (0.00-0.03) x10^3u/L Absolute Lymphs (auto) (1.0-4.6) x10^3/uL Absolute Monos (auto) (0.0-1.3) x10^3/uL Absolute Nucleated RBC (0.00-0.01) x10^3u/L Lymphocytes % (24.0-44.0) % Monocytes % (0.0-12.0) % Eosinophils % (0.00-5.0) % Basophils % (0.0-0.4) % Absolute Granulocytes (1.4-6.9) x10^3/uL Basophils # (0-0.4) x10^3/uL Sodium (137-145) mmol/L Potassium (3.5-5.1) mmol/L Chloride (98-107) mmol/L Carbon Dioxide (22-30) mmol/L Anion Gap (5-15) MEQ/L BUN (9-20) mg/dL Creatinine (0.66-1.25) mg/dL Estimated GFR ML/MIN Glucose (74-106) mg/dL Lactic Acid (0.4-2.0) Calcium (8.4-10.2) mg/dL Total Bilirubin (0.2-1.3) mg/dL AST (17-59) U/L ALT (0-50) U/L Alkaline Phosphatase (38-126) U/L Serum Total Protein (6.3-8.2) g/dL Albumin (3.5-5.0) g/dL Amylase (30-110) U/L Lipase (23-300) U/L Urine Color Dark Yellow (Yellow) Urine Appearance Turbid A (Clear) Urine pH 5.0 (4.6-8.0) Ur Specific [place] 1.025 (1.005-1.030) Urine Protein 100 A (Negative) Urine Glucose (UA) Negative (Negative) mg/dL Urine Ketones Trace A (Negative) Urine Blood Small A (Negative) Urine Nitrite Negative (Negative) Urine Bilirubin Small A (Negative) Urine Urobilinogen 1.0 A (0.2) mg/dL Ur Leukocyte Esterase Trace A (Negative) U Hyaline Cast (Auto) None Seen (0-2) /LPF Urine Microscopic RBC 0-2 (0-5) /HPF Urine Microscopic WBC 3-5 (0-5) /HPF Ur Epithelial Cells Few (None Seen) /HPF Urine Bacteria Moderate A (None Seen) /HPF Granular Casts 3-5 A (None Seen) /LPF Urine Culture Reflexed YES (NO) Slides for Path Review - Progress Progress: improved, pain not gone completely, re-examined Progress Note: 07/25/22 17:34 This patient's CAT scan shows an abnormal gallbladder favoring acute cholecystitis. There is tiny stones present. There is evidence of thickened gallbladder wall and pericholecystic stranding. This patient's medical issue is 1 of high complexity. The level of complexity in the work-up was based on review of the patient's past medical history, patient's medication list, patient's drug allergy list, history of present illness and findings on physical examination. The work-up includes placement of intravenous line, infusion intravenous fluids, obtain a urinalysis, CBC, CMP, amylase, lipase, lactic acid, CAT scan of the abdomen and pelvis. The results were reviewed by me and discussed with the patient. I think the patient be best served by admitting this patient into the office and obtaining a gallbladder ul trasound and surgical consultation. The patient has an elevated white count with a left shift. I am providing the patient with a dose of Levaquin IV antibiotic. It concentrates in the gallbladder and this would be appropriate medication for acute cholecystitis. I discussed with the patient's primary care provider, Dr. Tolliver who accepts the patient and together we formulated admission plan which includes intravenous fluids, clear liquids, n.p.o. status obtain a gallbladder ultrasound and surgical consultation. 07/25/22 17:40 Next, I spoke with Dr. Raimundo Doss who is a general surgeon and reviewed the same information with him and he stated that he may perform the cholecystectomy this evening or tomorrow morning and to keep him n.p.o. at this point. I also informed Dr. Raimundo Doss that their preference is to have him Micha Doss do the actual cholecystectomy. 07/25/22 17:42 07/25/22 17:[address] Hernadez. He will actually be admitting this patient. I reviewed the history and work-up findings with him. We will contact Dr. Tolliver to let him know that the patient desires Dr. Hernadez to be the admitting physician Discussed with : Amanda Maza, Other (Raimundo Doss general surgeon.) Will see patient in: ED Counseled pt/family regarding: lab results, need for follow-up, rad results Medical Desision Making - Independent Historian Additional History obtained from: Spouse - Discussion of managment Care discussed with:: PCP (Also spoke with Raimundo Doss general surgeon spec ialist) Reviewed:: Test results, Need for additional workup Agreed on:: Treatment plan, decision to admit Will see patient: in hospital - Diagnostic Testing Radiological Interpretation: Reviewed by me, Teleradiologist Report - Risk of complications The pt has a high risk of morbidity or mortality based on: Need for major surgery in patient with known risk factors, Decision regarding hospitilization or escalation of hosp level of care - Departure Departure Disposition: In-patient Admission Clinical Impression: Cholecystitis, acute with cholelithiasis Condition: Stable Critical Care Time: No Referrals: ADEN TOLLIVER MD [ACTIVE STAFF] - Follow up/PCP as directed
[2022-07-25] MEDS ORDERED: PROTONIX 40 MG IV IV ONE ×2 (15:46→15:51)
[2022-07-25] MEDS ORDERED: Sodium Chloride 0.9% 1000 ML 1,000 ML IV STA (15:46)
[2022-07-25] MEDS ORDERED: Hydromorphone 1 mg/ml Injection IV ONE (15:46)
[2022-07-25] MEDS ORDERED: Zofran 4 MG/2 ML VIAL IV ONE (15:46)
[2022-07-25] MEDS ORDERED: Zofran 4 MG/2 ML VIAL ONE (15:51)
[2022-07-25] MEDS ORDERED: Sodium Chloride 0.9% 1000 ML 1,000 ML ONE (15:51)
[2022-07-25] MEDS ORDERED: Hydromorphone 1 mg/ml Injection ONE ×2 (15:51→16:51)
[2022-07-25 16:15] LABS: Absolute Neutrophil Ct (ANC) 12.22 x10^3/uL (1.4-6.9); BASOPHIL % 0.2 % (0.0-0.4); Basophil (Absolute #) 0.03 x10^3/uL (0-0.4); Eosinophil % 0.4 % (0.00-5.0); Eosinophil (Absolute #) 0.07 x10^3/uL (0-0.5); Hematocrit 41.4 % (42-50); Hemoglobin 13.9 g/dL (12.5-18.0); IMMATURE GRAN # 0.15 x10^3u/L (0.00-0.03); IMMATURE GRAN % 0.9 % (0.00-0.4); Lymphocyte (Absolute #) 2.26 x10^3/uL (1.0-4.6); Mean Cell Volume 89.8 fL (78-100); Mean Corpuscular Hemoglobin 30.2 pg (26-32); Mean Corpuscular Hgb Concent. 33.6 g/dL (32-36); Mean Platelet Volume 11.8 fL (7.5-11.0); Monocyte (Absolute #) 1.37 x10^3/uL (0.0-1.3); Monocytes % 8.5 % (0.0-12.0); Platelet Count 53 x10^3/uL (150-450); Red Blood Count 4.61 x10^6/uL (4.1-5.6); Red Cell Distribution Width 13.2 % (11.5-14.0); White Blood Count 16.1 x10^3/uL (4.0-10.5)
[2022-07-25 16:36] LABS: Appearance Turbid (Clear); Bilirubin Small (Negative); Blood Small (Negative); Glucose, Urine Negative (Negative); Ketones Trace (Negative); Leukocyte Esterase Trace (Negative); Nitrite Negative (Negative); Protein,Urine Dip 100 (Negative); RBC 0-2 /HPF (0-5); Specific Gravity 1.025 (1.005-1.030)
[2022-07-25 16:44] LABS: Bacteria Moderate /HPF (None Seen); Epithelial Cells Few /HPF (None Seen)
--- NOTE | 2022-07-25 16:44 | XRAY ---
Indication: Right upper quadrant pain. Nausea and vomiting. Multiple contiguous axial images obtained through the abdomen and pelvis without contrast. Comparison: None Lung bases demonstrates incompletely visualized right base consolidating airspace disease with tiny effusion. Minimal left base fibrosis/scarring. Heart not enlarged. Small hiatal hernia. Noncontrasted stomach and bowel loops appear nonobstructed with normal appendix. Scattered colonic diverticulosis without diverticulitis. Markedly abnormal gallbladder appearing distended with abnormal wall thickening and pericholecystic stranding favoring cholecystitis. Neck of gallbladder demonstrates a few tiny gallstones, largest 6 mm. No abnormal intrahepatic biliary distention. Tiny fluid right colic gutter. No walled off fluid collection or free air. Remaining liver, pancreas, spleen, adrenal glands, kidneys, ureters, and bladder are unremarkable for noncontrast exam. Minimal scattered aortoiliac calcifications without AAA. Osseous structures intact with mild degenerative changes throughout the thoracolumbar spine. Impression: 1. Abnormal gallbladder as detailed favoring acute cholecystitis with tiny stones. 2. Incompletely visualized right lung base consolidating airspace disease with tiny effusion. 3. Chronic findings including small hiatal hernia, colonic diverticulosis, arteriosclerotic disease, and degenerative spondylosis.
[2022-07-25 16:45] LABS: ADD URINE CULTURE? YES (NO); Hyaline Casts None Seen /LPF (0-2)
[2022-07-25 16:49] LABS: ALBUMIN 3.6 g/dL (3.5-5.0); ANION GAP 15.1 MEQ/L (5-15); BILIRUBIN,TOTAL 0.9 mg/dL (0.2-1.3); Calcium 8.5 mg/dL (8.4-10.2); Creatinine 1 2.31 mg/dL (0.66-1.25); EST GLOMERULAR FILTRATION RATE 30.2 ML/MIN; Total Protein 7.1 g/dL (6.3-8.2)
[2022-07-25] MEDS ORDERED: Levofloxacin 500MG/100ML D5W 500 MG/100 ML BAG IV STA (17:05)
[2022-07-25] MEDS ORDERED: Levofloxacin 500MG/100ML D5W 500 MG/100 ML BAG IV ONE (17:13)
[2022-07-25 17:17] LABS: Slide Review 1 YES
[2022-07-25] MEDS ORDERED: Hydromorphone 1 mg/ml Injection IV PRN (17:47)
[2022-07-25 17:58] LABS: INFLUENZA A NEGATIVE (NEGATIVE); INFLUENZA B NEGATIVE (NEGATIVE); RESPIRATORY SYNCTIAL VIRUS NEGATIVE (Negative); SARS-CoV-2 Xpert Express NEGATIVE (NEGATIVE)
[2022-07-25] MEDS ORDERED: FEVERALL 650 MG PR PRN (18:47)
[2022-07-25] MEDS ORDERED: Zofran 4 MG/2 ML VIAL IV PRN (18:47)
[2022-07-25] MEDS: Sodium Chloride 0.9% 1000 ML 1,000 ML IV SCH (20:22)
[2022-07-26 04:52] LABS: Absolute Neutrophil Ct (ANC) 9.72 x10^3/uL (1.4-6.9); BASOPHIL % 0.1 % (0.0-0.4); Basophil (Absolute #) 0.02 x10^3/uL (0-0.4); Eosinophil % 0.9 % (0.00-5.0); Eosinophil (Absolute #) 0.13 x10^3/uL (0-0.5); Hemoglobin 11.7 g/dL (12.5-18.0); IMMATURE GRAN # 0.09 x10^3u/L (0.00-0.03); IMMATURE GRAN % 0.6 % (0.00-0.4); Lymphocyte (Absolute #) 2.44 x10^3/uL (1.0-4.6); Lymphocytes % 17.6 % (24.0-44.0); Mean Cell Volume 90.9 fL (78-100); Mean Corpuscular Hemoglobin 29.5 pg (26-32); Mean Corpuscular Hgb Concent. 32.5 g/dL (32-36); Mean Platelet Volume 10.6 fL (7.5-11.0); Monocyte (Absolute #) 1.45 x10^3/uL (0.0-1.3); Monocytes % 10.5 % (0.0-12.0); Neutrophil % 70.3 % (36.0-66.0); Platelet Count 65 x10^3/uL (150-450); Red Blood Count 3.96 x10^6/uL (4.1-5.6); Red Cell Distribution Width 13.4 % (11.5-14.0); White Blood Count 13.9 x10^3/uL (4.0-10.5)
[2022-07-26 05:23] LABS: ALBUMIN 3.1 g/dL (3.5-5.0); ANION GAP 10.9 MEQ/L (5-15); BILIRUBIN,TOTAL 0.7 mg/dL (0.2-1.3); Calcium 8.2 mg/dL (8.4-10.2); Creatinine 1 1.67 mg/dL (0.66-1.25); Potassium 3.9 mmol/L (3.5-5.1); Total Protein 6.5 g/dL (6.3-8.2)
[2022-07-26] MEDS: Sodium Chloride 0.9% 1000 ML 1,000 ML IV SCH (05:25)
[2022-07-26 07:43] LABS: Slide Review 1 YES
[2022-07-26] MEDS ORDERED: Bystolic 5 MG PO ONE (08:22)
[2022-07-26] MEDS ORDERED: CLINDAMYCIN-D5W 900 MG/50 ML*** 900 MG/50 ML BAG IV SCH (10:00)
[2022-07-26] MEDS ORDERED: Levofloxacin 500MG/100ML D5W 500 MG/100 ML BAG IV SCH (10:00)
[2022-07-26] MEDS ORDERED: Lactated Ringers 1,000 ML IV SCH (10:00)
[2022-07-26] MEDS ORDERED: Sensorcaine 0.25% 10 ML ONE (14:14)
[2022-07-26] MEDS ORDERED: Decadron 4 MG INJ ONE (14:19)
[2022-07-26] MEDS ORDERED: Zemuron 100 MG/10 ML ONE (14:19)
[2022-07-26] MEDS ORDERED: TORAdol 30 mg Injection ONE (14:19)
[2022-07-26] MEDS ORDERED: SUBLIMAZE 100 MCG/2 ML ONE ×2 (14:19→16:25)
[2022-07-26] MEDS ORDERED: Zofran 4 MG/2 ML VIAL ONE (14:19)
[2022-07-26] MEDS ORDERED: Xylocaine-Mpf 2% 5 Ml Vial ONE (14:19)
[2022-07-26] MEDS ORDERED: DIPRIVAN 200 MG/20 ML IV ONE (14:19)
[2022-07-26] MEDS ORDERED: BRIDION 200MG/2ML IV ONE (14:19)
[2022-07-26] MEDS ORDERED: Magnesium Sulfate 1 GM/2 ML VIAL ONE (14:26)
[2022-07-26] MEDS ORDERED: OFIRMEV 100 ML IV ONE (14:27)
[2022-07-26] MEDS ORDERED: Lactated Ringers 1,000 ML IV ONE ×2 (14:27→17:00)
[2022-07-26] MEDS ORDERED: Ketamine HCl 50 MG/ML ONE (14:33)
[2022-07-26] MEDS ORDERED: MORPHINE SULFATE 2 MG INJ IV PRN (17:09)
[2022-07-26] MEDS: Lactated Ringers 1,000 ML IV SCH (17:14)
[2022-07-26] MEDS ORDERED: NON-FORMULARY ITEM (Omeprazole [Omeprazole] 20 MG Tablet.Dr) PO SCH (17:15)
[2022-07-26] MEDS ORDERED: MEDICATION INTERVENTION MC SCH (17:30)
[2022-07-26] MEDS: Docusate Sodium 100 MG PO SCH (21:43)
[2022-07-26] MEDS: CLINDAMYCIN-D5W 900 MG/50 ML*** 900 MG/50 ML BAG IV SCH (21:44)
[2022-07-26] MEDS: Zocor 10MG PO SCH (21:44)
[2022-07-26] MEDS: CLARITIN 10 MG PO SCH (21:44)
[2022-07-26] MEDS: FISH OIL 1,000 MG CAPSULE PO SCH (21:44)
[2022-07-26] MEDS ORDERED: NON-FORMULARY ITEM (Lovastatin [Lovastatin] 10 MG Tablet) PO SCH (22:00)
[2022-07-26] MEDS ORDERED: Protonix 40MG Tablet PO SCH (22:00)
[2022-07-27] MEDS: Lactated Ringers 1,000 ML IV SCH ×2 (03:25→14:14)
[2022-07-27] MEDS: CLINDAMYCIN-D5W 900 MG/50 ML*** 900 MG/50 ML BAG IV SCH ×3 (05:08→21:15)
[2022-07-27 05:48] LABS: Hematocrit 35.4 % (42-50); Hemoglobin 11.6 g/dL (12.5-18.0); Mean Cell Volume 90.8 fL (78-100); Mean Corpuscular Hemoglobin 29.7 pg (26-32); Mean Corpuscular Hgb Concent. 32.8 g/dL (32-36); Mean Platelet Volume 10.7 fL (7.5-11.0); Platelet Count 84 x10^3/uL (150-450); Red Cell Distribution Width 14.2 % (11.5-14.0); White Blood Count 14.7 x10^3/uL (4.0-10.5)
--- NOTE | 2022-07-27 07:30 | PCM.NOTE ---
Date and Time: 07/27/22727 Subjective Assessment: POD #1 s/p gigi garcia, has some blood tinged fluid in YAW, not purulent. he is tolerating liquids, passed flatus and pain is controlled Objective Exam General Appearance: no apparent distress Neurologic Exam: alert, oriented x 3 Wound Assessment: Skin/Wound Assessment Wound/Incision Assessment Start: 07/26/22 09:00 Text: Status: Active Freq: Q6H Protocol: Document 07/27/22 06:00 WW (Rec: 07/27/22 06:04 WW [id number]) Wound/Incision Assessment Anterior Abdomen Wound Assessment Shift Assessment Wound Type Incision Wound Stage Non Pressure Wound Dressing Status Dry & Intact Drainage Amount None Drainage Odor None/Absent General Appearance Clean/Dry Right Lower Anterior Abdomen Drain Type YAW drain Odor None/Absent Comment Red bloody, 30 ml out this shift. Wound Photo Photo Taken No Comment: S/P Jovanni Respiratory Exam: normal breath sounds, lungs clear, No respiratory distress Cardiovascular Exam: regular rate/rhythm, normal heart sounds Gastrointestinal/Abdomen Exam: soft, normal bowel sounds, other (dressings clean, dry, intact. blood tinged fluid in YAW) Extremity Exam: normal inspection, normal range of motion OBJECTIVE DATA Vital Signs: Vital Signs - 24 hr Temp Pulse Resp BP BP Pulse Ox 07/27/22 07:18 74 16 92 L 07/27/22 07:17 92 L 07/27/22 07:07 97.5 F 80 15 118/63 91 L 07/27/22 04:00 97.1 F 70 17 103/57 92 L 07/26/22 23:29 96.9 F 75 16 122/61 94 L 07/26/22 20:25 97.0 F 82 16 127/71 95 07/26/22 19:23 96.8 F 81 16 129/66 93 L 07/26/22 18:10 96.9 F 83 17 121/61 94 L 07/26/22 17:53 97.9 F 81 18 130/63 96 07/26/22 17:10 97.3 F 81 16 130/64 95 07/26/22 17:01 97.9 F 81 16 132/61 94 L 07/26/22 17:00 97.9 F 81 16 132/61 94 L 07/26/22 12:19 97.9 F 101 H 16 122/56 97 07/26/22 12:00 97.9 F 101 H 16 122/56 97 07/26/22 08:13 125 H 135/63 92 L 07/26/22 07:29 97.9 F 119 H 16 206/85 97 Pain Assessment - Last Documented Pain Intensity 3 Pain Scale Used 0-10 Pain Scale Intake and Output: Intake & Output 07/24/22 07/25/22 07/26/22 07/27/22 11:59 11:59 11:59 11:59 Intake Total 715 2677 Output Total 980 Balance 715 1697 Weight 83.7 kg 83.6 kg Lab Results: Lab Results-Last 24 Hours 07/26/22 07/27/22 07/27/22 Range/Units 04:52 05:28 05:28 WBC 14.7 H (4.0-10.5) x10^3/uL RBC 3.90 L (4.1-5.6) x10^6/uL Hgb 11.6 L (12.5-18.0) g/dL Hct 35.4 L (42-50) % MCV 90.8 (78-100) fL MCH 29.7 (26-32) pg MCHC 32.8 (32-36) g/dL RDW 14.2 H (11.5-14.0) % Plt Count 84 L (150-450) x10^3/uL MPV 10.7 (7.5-11.0) fL Total Bilirubin 0.50 (0.2-1.3) mg/dL Slides for Path Review YES Radiology Exams: Radiology Procedures Category Date Time Status ABDOMEN AND PELVIS W/0 CONTRAS [CT] Stat Exams 07/25/22 15:46 Completed Assessment/Plan (1) Cholecystitis, acute with cholelithiasis Current Visit: Yes Status: Acute Assessment & Plan: on cleocin, doing well. wbc improved and afebrile, nontoxic appearing Code(s): K80.00 - CALCULUS OF GALLBLADDER W ACUTE CHOLECYST W/O OBSTRUCTION
[2022-07-27] MEDS: ECOTRIN 81 MG PO SCH (09:28)
[2022-07-27] MEDS: FISH OIL 1,000 MG CAPSULE PO SCH ×2 (09:28→21:14)
[2022-07-27] MEDS: Zestril 10 MG PO SCH (09:28)
[2022-07-27] MEDS ORDERED: NON-FORMULARY ITEM (Ubidecarenone [Co Q-10] 100 MG Capsule) PO SCH (10:00)
[2022-07-27] MEDS: NORCO 7.5/325 MG TAB PO PRN ×2 (11:59→19:31)
[2022-07-27] MEDS: Zocor 10MG PO SCH (21:14)
[2022-07-27] MEDS: Docusate Sodium 100 MG PO SCH (21:14)
[2022-07-27] MEDS ORDERED: Bystolic 5 MG PO SCH (22:00)
[2022-07-27] MEDS: CLARITIN 10 MG PO SCH (22:49)
[2022-07-28] MEDS: CLINDAMYCIN-D5W 900 MG/50 ML*** 900 MG/50 ML BAG IV SCH (05:00)
--- NOTE | 2022-07-28 08:09 | PCM.DS ---
Discharge Summary Date of Admission: 07/25/22 18:30 Admitting Physician: ADEN TOLLIVER Primary Care Provider: RUBY OCHOA Allergies Allergies Penicillins Allergy (Mild, Verified 07/25/22 18:36) Rash Hospital Summary - Hospital Course Hospital Course: patient had laparoscopic cholecystectomy due to acute cholecystitis with Dr Doss, doing well postop, no fever. tolerating po, pain is well controlled, scant output from YAW. - Vitals & Intake/Output Vital Signs: Vital Signs Temperature 97.9 F 07/28/22 04:48 Pulse Rate 70 07/28/22 04:48 Respiratory Rate 17 07/28/22 04:48 Blood Pressure 145/73 07/28/22 04:48 O2 Sat by Pulse Oximetry 94 L 07/28/22 04:48 Intake & Output: Intake & Output 07/25/22 07/26/22 07/27/22 07/28/22 11:59 11:59 11:59 12:59 Intake Total 715 3037 2436 Output Total 1940 1332 Balance 715 1097 1104 Weight 83.7 kg 83.6 kg 86 kg - Lab Result Diagrams: 07/27/22 05:28 07/26/22 04:52 Micro Results-Entire Visit: Microbiology 07/25/22 15:49 Urine Culture - Final Clean Catch Midstream <10K NORMAL SKIN ALLEN PROBABLE SKIN CONTAMINANT - Procedures and Test Procedures and Tests throughout Hospitalization: Therapy Orders & Screens 07/26/22 10:25 EKG ROUTINE Comment: Diagnosis: acute cholecystitis with cholelithiosis 07/26/22 20:58 Incentive Spirometry TID Comment: Diagnosis: acute cholecystitis with cholelithiosis 07/27/22 07:16 Oxygen Nasal Cannula 2 lpm Comment: Diagnosis: acute cholecystitis with cholelithiosis 07/27/22 07:17 Respiratory Therapy Assessment DAILY Comment: Diagnosis: acute cholecystitis with cholelithiosis Discharge Exam General Appearance: no apparent distress Neurologic Exam: alert, oriented x 3 Respiratory Exam: normal breath sounds, lungs clear, No respiratory distress Cardiovascular Exam: regular rate/rhythm, normal heart sounds Gastrointestinal/Abdomen Exam: soft, normal bowel sounds, other (YAW with scant serosang. fluid), No guarding, No rebound Extremity Exam: normal inspection, normal range of motion Wound Assessment: Skin/Wound Assessment Wound/Incision Assessment Start: 07/26/22 09:00 Text: Status: Active Freq: Q6H Protocol: Document 07/28/22 00:00 WW (Rec: 07/28/22 00:06 WW [id number]) Wound/Incision Assessment Anterior Abdomen Wound Assessment Shift Assessment Wound Type Incision Wound Stage Non Pressure Wound Dressing Status Dry & Intact Drainage Amount None Drainage Odor None/Absent General Appearance Clean/Dry Right Lower Anterior Abdomen Drain Type YAW drain Drainage Description Serosanguineous Odor None/Absent Comment Red bloody; small amount. Wound Photo Photo Taken No Final Diagnosis/Problem List - Final Discharge Diagnosis/Problem (1) Cholecystitis, acute with cholelithiasis Current Visit: Yes Status: Acute Assessment & Plan: s/p gigi garcia, home today. will see Dr Doss on in followup Code(s): K80.00 - CALCULUS OF GALLBLADDER W ACUTE CHOLECYST W/O OBSTRUCTION - Discharge Disposition: Home, Self-Care Condition: Stable Prescriptions: New clindamycin HCL [Clindamycin HCl] 300 mg PO TID #21 cap Hydrocodone/Acetaminophen [Hydrocodone-Acetamin 7.5-325] 1 each PO Q6H PRN PRN #28 tablet MDD 4 PRN Reason: Pain Continue Nebivolol HCl [Bystolic] 10 mg PO HS [place]-3 Fatty Acids/Fish Oil [Fish Oil 1,000 mg Capsule] 1,000 mg PO BID Loratadine 10 mg [Claritin 10 mg] 10 mg PO HS Lisinopril 10 mg [Zestril 10 MG] 10 mg PO DAILY Aspirin EC 81 mg [Ecotrin 81 mg] 81 mg PO DAILY Ubidecarenone [Co Q-10] 100 mg PO DAILY Omeprazole 20 mg PO UD Lovastatin 10 mg PO HS Docusate Sodium [Colace] 100 mg PO HS Follow up with: RUBY COHOA MD [Primary Care Provider] - 07/31/22 11:00 am YEIMI DOSS [ACTIVE STAFF] - 08/08/22 9:55 am
[2022-07-28] MEDS: NORCO 7.5/325 MG TAB PO PRN (08:32)
[2022-07-28] MEDS: Zestril 10 MG PO SCH (09:02)
[2022-07-28] MEDS: FISH OIL 1,000 MG CAPSULE PO SCH (09:02)
[2022-07-28] MEDS: ECOTRIN 81 MG PO SCH (09:02)
[2022-07-28 11:53] VITALS: BP 118/56; PULSE 72; O2SAT 95
--- NOTE | 2022-07-29 09:04 | OP ---
SURGERY DATE/TIME: 07/26/2022 1437 PREOPERATIVE DIAGNOSIS: Acute cholecystitis/cholelithiasis. POSTOPERATIVE DIAGNOSIS: Acute cholecystitis/cholelithiasis with empyema. PROCEDURE: Laparoscopic cholecystectomy. SURGEON: Dr. Micha Doss. ANESTHESIA: General. DRAINS: One. COMPLICATIONS: None. CONDITION: Stable. INDICATIONS: A patient with about three major attacks over six weeks progressive in nature. He had diagnostic imaging suggestive of acute cholecystitis/cholelithiasis. The procedure discussed and wished to proceed. DESCRIPTION OF PROCEDURE AND FINDINGS: Taken to surgery. General anesthetic, routine prep and drape. Veress needle inserted right upper quadrant. Insufflating pressure 14. Four - 5's. Good visualization. Cystic duct and cystic artery defined. Initially inferiorly probably the cystic duct and superiorly cystic artery subsequently I think was not a cystic artery here but this was just a doubled layer of peritoneum at the edge of the gallbladder and then the cystic duct. Both structures were running in correct direction transversely and both were doubly clipped. There was an impacted stone in the infundibulum this was dissected immediately superior to this. With care and patience this area kept being lifted up and out. Up above this zone was a gallbladder artery. I am not sure whether it was the posterior artery or whether it was a combination of right and left but I did not see where the other branch fell to this. It was a very substantial vessel. It was taken. Gallbladder is continued to be taken out of fossa. It was a gangrenous gallbladder. There were recent pus spots of gangrene. It was full of pus. The purulence was cultured. The back wall was able to be totally removed. The gallbladder was able to be taken and basically bivalved taking in two pieces out the epigastric port. A gastric separate port had been changed to a 12 for possible stapling and extraction. The field was irrigated. Surgicel was placed. A 10 YAW was placed. The field was dry. The omentum was brought back up secured 0 PDS. The Surgicel was left in place. The epigastric port was closed with hole closure device with 0 Vicryl. Skin closed with 4-0 Vicryl and Steri-Strips. Pictures and findings discussed with his . Both the patient and his are friends with me and my family. The patient completed the case in satisfactory condition.
--- NOTE | 2022-07-29 09:14 | PROG NOTE ---
DATE: 07/27/2022 HISTORY: Ab Omalley was better today. He had 30 cc in his drain. It is serosanguinous. His abdomen is soft. He is alert. His vital signs are stable. He is tolerating some liquids. He is postoperative day one, in pain, no gallbladder. He is on Cleocin IV. He is allergic to Penicillin. IMPRESSION AND PLAN: If he has another good day will be able to send him home tomorrow.
== END 2022-07-28 13:06 | disposition home or self-care (01) | DRG 419 ==
LOC: ED 15:00 → MED SURG 18:30
PROVIDERS: ADMIT General Practice; ATTEND Family Medicine
PROC: 0FT44ZZ Resection of Gallbladder, Percutaneous Endoscopic Approach (ICD-10-PCS; principal; 2022-07-26)
DX: K80.00 Calculus of gallbladder with acute cholecystitis without obstruction (principal); R11.10 Vomiting, unspecified; I10 Essential (primary) hypertension; E78.5 Hyperlipidemia, unspecified; Z79.899 Other long term (current) drug therapy; Z20.828 Contact with and (suspected) exposure to other viral communicable diseases
CPT/HCPCS: 0241U; 36000; 36415; 47562; 74176; 80053; 81001; 82150; 82247; 83605; 83690; 85025; 85027; 87086; 93005; 94760; 96360; 96365; 96374; 96375; 99284; J1100; J1170; J1885; J1956; J2270; J2405; J2704; J3010; J3475; A9270-GY

== ENCOUNTER 2023-11-01 10:15 | Emergency (ER) | payer MEDICARE ==
--- NOTE | 2023-11-01 10:17 | ERPHSYRPT ---
- History of Present Illness Time Seen by Provider: 11/01/23 10:17 Source: patient Exam Limitations: no limitations Physician History: This is a right-handed 68-year-old white male patient of Dr. Ochoa who presents with right hand laceration dorsal aspect of his right thumb. Patient's tetanus status is not up-to-date. He is not on any anticoagulation therapy. Patient states that he has had Keflex in the past without any problems or issues. Patient was putting metal sheet up on the garage door when a talat of wind came and knocking the metal sheet cutting his right hand/thumb. Patient has a history of gastroesophageal reflux disease, hypertension and hyperlipidemia Occurred: just prior to arrival Method of Injury: direct blow (From a metal sheet) Quality: constant, aching Severity of Pain-Max: mild Severity of Pain-Current: mild Extremities Pain Location: thumb: right Modifying Factors: Improves With: nothing Associated Symptoms: none Allergies/Adverse Reactions: Penicillins Allergy (Mild, Verified 11/01/23 10:20) Rash Home Medications: Nebivolol HCl [Bystolic] 10 mg PO HS 07/19/13 [History] Friendship-3 Fatty Acids/Fish Oil [Fish Oil 1,000 mg Capsule] 1,000 mg PO BID 07/19/13 [History] Loratadine 10 mg [Claritin 10 mg] 10 mg PO HS 10/14/17 [History] Aspirin EC 81 mg [Ecotrin 81 mg] 81 mg PO DAILY 07/25/22 [History] Docusate Sodium [Colace] 100 mg PO HS 07/25/22 [History] Lisinopril 10 mg [Zestril 10 MG] 10 mg PO DAILY 07/25/22 [History] Lovastatin 10 mg PO HS 07/25/22 [History] Omeprazole 20 mg PO UD 07/25/22 [History] Ubidecarenone [Co Q-10] 100 mg PO DAILY 07/25/22 [History] Hx Tetanus, Diphtheria Vaccination/Date Given: Yes Hx Influenza Vaccination/Date Given: Yes Hx Pneumococcal Vaccination/Date Given: No Travel Risk - International Travel Have you traveled outside of the country in past 3 weeks: No - Emerging Infectious Disease Are you exhibiting symptoms associated with any current EIDs: No - Review of Systems Constitutional: No Symptoms Eyes: No Symptoms Ears, Nose, & Throat: No Symptoms Respiratory: No Symptoms Cardiac: No Symptoms Abdominal/Gastrointestinal: No Symptoms Genitourinary Symptoms: No Symptoms Musculoskeletal: No Symptoms Skin: Other (Laceration right thumb) Neurological: No Symptoms Psychological: No Symptoms Endocrine: No Symptoms Hematologic/Lymphatic: No Symptoms Immunological/Allergic: No Symptoms All Other Systems: Reviewed and Negative - Past Medical History Pertinent Past Medical History: Yes Neurological History: No Pertinent History ENT History: No Pertinent History Cardiac History: High Cholesterol, Hypertension Respiratory History: No Pertinent History Endocrine Medical History: No Pertinent History Musculoskeletal History: No Pertinent History GI Medical History: No Pertinent History History: No Pertinent History Psycho-Social History: No Pertinent History Male Reproductive Disorders: No Pertinent History Other Medical History: allergies - Past Surgical History Past Surgical History: Yes Neuro Surgical History: No Pertinent History Cardiac: No Pertinent History Respiratory: No Pertinent History Gastrointestinal: No Pertinent History, Other Genitourinary: No Pertinent History Musculoskeletal: Orthopedic Surgery Male Surgical History: No Pertinent History Other Surgical History: polyp removal, left middle finger amputation - Social History Smoking Status: Never smoker Exposure to second hand smoke: No Drug Use: none Patient Lives Alone: No - Nursing Vital Signs Nursing Vital Signs: Initial Vital Signs Temperature 97.1 F 11/01/23 10:21 Pulse Rate 70 11/01/23 10:21 Respiratory Rate 20 11/01/23 10:21 Blood Pressure 144/90 11/01/23 10:21 O2 Sat by Pulse Oximetry 94 L 11/01/23 10:21 Pain Scale Pain Intensity 0 - Physical Exam General Appearance: no apparent distress, alert, anxiety Eyes, Ears, Nose, Throat Exam: normal ENT inspection, moist mucous membranes Neck Exam: normal inspection, non-tender, supple, full range of motion Cardiovascular/Respiratory Exam: chest non-tender, no respiratory distress Abdominal Exam: non-tender Back Exam: normal inspection, normal range of motion, No CVA tenderness, No vertebral tenderness Shoulder Exam: normal inspection, non-tender, no evidence of injury, normal ROM Elbow/Forearm Exam: normal inspection, non-tender, no evidence of injury, normal ROM Wrist Exam: normal inspection, non-tender, no evidence of injury, normal ROM Hand Exam: normal ROM (Patient is neurovascularly intact. Tendons are intact), laceration (2 cm laceration dorsal aspect right thumb.), soft tissue tenderness (The area of the laceration) Neuro/Tendon Exam: normal sensation, normal motor functions, normal tendon functions, responds to pain, no evidence tendon injury Mental Status Exam: alert, oriented x 3, cooperative Skin Exam: normal color, warm, dry, laceration (Above) SpO2 Interpretation: normal O2 Delivery: Room Air Procedures - Laceration/Wound Repair Right Dorsal Finger Time of Procedure: 10:50 Wound Location: Right, hand (Right thumb) Wound Length (cm): 2 Wound's Depth, Shape: superficial, linear, flap Wound Explored: clean (The wound was explored to the base. It was in a bloodless field. No foreign body noted) Irrigated: Yes Hibiclens Prep: Yes Anesthesia: 1% Lidocaine Volume Anesthetic (ccs): 2.5 Wound Repaired With: sutures Suture Size/Type: 3-0, prolene Number of Sutures: 3 Layer Closure?: No Progress: 11/01/23 11:20 No complications. Patient tolerated the procedure well. Post procedure, the wound was recleaned. Bacitracin ointment was applied. A pressure dressing was applied. - Course Nursing assessment & vital signs reviewed: Yes Ordered Tests: Medication Summary Discontinued Medications Generic Name Dose Route Start Last Admin Trade Name Freq PRN Reason Stop Dose Admin Diphtheria/Tetanus/Acell Pertussis 0.5 ml 11/01/23 10:36 11/01/23 11:07 Tdap --Diph,Pertuss(Acell),Tet Vac/Pf 0.5 Ml Vial IM 11/01/23 10:37 0.5 ml .ONCE ONE Administration Diphtheria/Tetanus/Acell Pertussis Confirm 11/01/23 11:06 Tdap --Diph,Pertuss(Acell),Tet Vac/Pf 0.5 Ml Vial Administered 11/01/23 11:07 Dose 0.5 ml IM .STK-MED ONE Lidocaine HCl Confirm 11/01/23 10:40 Lidocaine Hcl 1% 20 Ml Mdv 20 Ml Ml Administered 11/01/23 10:41 Dose 3 ml .ROUTE .STK-MED ONE Lidocaine HCl 3 ml 11/01/23 10:46 11/01/23 10:53 Lidocaine Hcl 1% 20 Ml Mdv 20 Ml Ml IJ 11/01/23 10:47 3 ml STAT ONE Administration - Progress Progress: improved Progress Note: 11/01/23 11:21 My medical decision making and the assignment of low complexity to this patient's medical issue was based on review of the patient's past medical history, review the patient's medication list, review the patient drug allergy list, history present illness and physical findings on examination. No radiographic or laboratory studies were necessary in this patient's workup. Counseled pt/family regarding: diagnosis, need for follow-up Medical Desision Making - Independent Historian Additional History obtained from: Spouse - Diagnostic Testing Diagnostic test were ordered, analyzed, and reviewed by me: No - Risk of complications The pt has a mod risk of morbidity or mortality based on: Need for prescription drug management - Departure Departure Disposition: Home Clinical Impression: Laceration of right thumb Condition: Stable Critical Care Time: No Referrals: RUBY OCHOA MD [Primary Care Provider] - Follow up/PCP as directed Additional Instructions: Keep current dressing in place until noon on 11/02/2023. At that time you may remove the dressing and wash the site taking care not to rub the suture repair site. Blot dry or use a chair frame builder. After drying the site, apply thin layer of antibiotic ointment of choice and cover with a Band-Aid. Take your antibiotics and other medications as prescribed. Suture removal in 8 to 10 days. Use ice pack, Tylenol and ibuprofen for pain control if there are no contraindications to do so. Prescriptions: Cephalexin Mh 500 mg [Keflex 500 mg] 500 mg PO TID #15 cap
[2023-11-01 10:35] VITALS: PULSE 70; RESP 20; TEMP 97.1
[2023-11-01] MEDS ORDERED: XYLOCAINE 1% HCL 20 ML MDV ONE (10:40)
[2023-11-01] MEDS: XYLOCAINE 1% HCL 20 ML MDV IJ ONE (10:53)
[2023-11-01] MEDS ORDERED: Adacel Vial IM ONE (11:06)
[2023-11-01] MEDS: Adacel Vial IM ONE (11:07)
[2023-11-01] MEDS ORDERED: BACIGUENT PACKET ONE (11:31)
[2023-11-01] MEDS: BACIGUENT PACKET TP ONE (11:42)
[2023-11-01 11:43] VITALS: BP 127/76; O2SAT 98
== END 2023-11-01 11:43 | disposition home or self-care (01) ==
LOC: ED 10:15
DX: S61.011A Laceration without foreign body of right thumb without damage to nail, initial encounter (principal); W26.8XXA Contact with other sharp object(s), not elsewhere classified, initial encounter; I10 Essential (primary) hypertension; E78.5 Hyperlipidemia, unspecified; Z79.899 Other long term (current) drug therapy; Z23 Encounter for immunization
CPT/HCPCS: 12001; 90471; 90715; 96372; 99283; A9270-GY